=== PATIENT | female | born 1955 | race American Indian/Alaskan Native ===

== ENCOUNTER 2019-02-11 07:26 | Outpatient (CLI) | payer MEDICARE ==
--- NOTE | 2019-02-11 12:49 | Mammography Report ---
BILATERAL DIGITAL SCREENING MAMMOGRAM with CAD: 02/11/19 07:26:00 CLINICAL: Routine screening. COMPARISON:11/15/13 and 11/15/14 FINDINGS: There are scattered areas of fibroglandular density.A stable left oval circumscribed periareolar mass at 6 o'clock. No new mass, architectural distortion or suspicious calcifications. IMPRESSION: No mammographic evidence of malignancy. BI-RADS CATEGORY: 2 -- Benign RECOMMENDATION: Routine mammographic screening in one year. COMMENT: Patient follow-up letters are generated by our [email or web address] application.
== END 2019-02-11 07:27 | disposition home or self-care (01) ==
LOC: US 07:26 → MAMMO 07:27
PROVIDERS: ATTEND Family Medicine
DX: Z12.31 Encounter for screening mammogram for malignant neoplasm of breast (principal); I10 Essential (primary) hypertension; R10.9 Unspecified abdominal pain
CPT/HCPCS: 77067